=== PATIENT | male | born 1990 | race Caucasian/White ===

== ENCOUNTER 2023-09-11 11:15 | Emergency (ER) | payer OTHER ==
[~2023-09-11] VITALS: Ht 175.3 cm; Wt 82.3 kg
[2023-09-11 12:54] VITALS: BP 122/80; TEMP 96.8; O2SAT 97
== END 2023-09-11 12:55 | disposition home or self-care (01) ==
LOC: M ED 12:37
DX: Z48.01 Encounter for change or removal of surgical wound dressing (principal)